=== PATIENT | female | born 1960 | race Caucasian/White ===

== ENCOUNTER 2024-04-03 09:34 | Outpatient (CLI) | payer MEDICARE, SELFPAY ==
--- NOTE | ~2024-04-03 | CT_ITS ---
EXAMINATION: CT sinus wo con DATE: 04/03/2024 09:50 INDICATION: Chronic sinusitis TECHNIQUE: Computed tomography (CT) of the paranasal sinuses was performed without intravenous contra st. The dose-length product was 410.46 mGy-cm. Automated exposure control and iterative reconstructio n technique were employed. COMPARISON: None FINDINGS: No significant nasal septal deviation. Ostiomeatal units are patent. No significant mucosal thickening. No air-fluid levels. No mucoperiosteal reaction. No significant abnormality of the masto ids which are pneumatized. IMPRESSION: 1. No significant sinus disease. Reviewed, dictated and finalized at location B.
== END 2024-04-03 09:35 ==
LOC: GOSHIMG 09:35
PROVIDERS: PCP Nurse Practitioner; Visit Provider Otolaryngology
DX: J32.9 Chronic sinusitis, unspecified (principal)
CPT/HCPCS: 70486